=== PATIENT | female | born 1970 | race Caucasian/White ===

== ENCOUNTER 2017-01-25 02:22 | Observation (INO) | payer OTHER ==
[2017-01-25] MEDS ORDERED: EPINEPHrine 1 MG/ML 1 ML AMP IM STA (02:33)
[2017-01-25] MEDS ORDERED: FAMOTIDINE 20 MG/2 ML VIAL IV STA (02:33)
[2017-01-25] MEDS ORDERED: methylPREDNISolone SOD SUCCI 125 MG/2 ML VIAL IV STA (02:33)
[2017-01-25] MEDS ORDERED: diphenhydrAMINE 50 MG/ML 1 ML VIAL IVP STA (02:33)
[2017-01-25] MEDS ORDERED: ALBUTEROL NEBULIZED 2.5 MG/3 ML INHALATION STA (02:34)
--- NOTE | 2017-01-25 02:50 | ED ---
Allergic Reaction HPI - General Chief complaint: Allergic Reaction Stated complaint: Allergic Reaction Time Seen by Provider: 01/25/17 02:25 Source: EMS, RN notes reviewed, old records reviewed Mode of arrival: EMS Limitations: no limitations - History of Present Illness Initial Comments: Patient is a 46-year-old female chief complaint of an ALLERGIC reaction for the second time today. Patient reports that earlier today she was at [facility] had an almond milk drink. Patient reports that she is ALLERGIC to dairy. She states that after having the drink a few hours later she started to have some swelling of her lip. She did call EMS and was given Benadryl. She reports that after that she was feeling fine, they gave her an epipen incase it became worse. Approximately 30 minutes later after EMS left she started to have symptoms severe swelling of her throat and felt like she couldn't breathe. She called EMS again after administering 1 mg epinephrine injection. Patient received Benadryl IV as well as 10 mg of prednisone prior to return to emergency department. Patient reports that her hives have diminished but she still is feeling a fullness in her throat and her uvula is swollen. She reports that she is concerned her throat close off. Patient denies any other exposures after drinking that drink. - Related Data Allergies Allergy/AdvReac Type Severity Reaction Status Date / Time No Known Allergies Allergy Verified 01/25/17 02:35 Review of Systems ROS Statement: Those systems with pertinent positive or pertinent negative responses have been documented in the HPI. ROS Other: All systems not noted in ROS Statement are negative. Past Medical History Past Medical History: No Reported History History of Any Multi-Drug Resistant Organisms: None Reported Past Surgical History: Section, Cholecystectomy, Hysterectomy Past Psychological History: No Psychological Hx Reported Smoking Status: Never smoker Past Alcohol Use History: Occasional Past Drug Use History: None Reported General Exam - General Exam Comments Initial Comments: Pleasant 46-year-old female. No distress. Limitations: no limitations General appearance: alert, in no apparent distress Head exam: Present: atraumatic, normocephalic, normal inspection Eye exam: Present: normal appearance, PERRL, EOMI. Absent: scleral icterus, conjunctival injection, periorbital swelling ENT exam: Present: normal exam, mucous membranes moist. Absent: normal oropharynx (Patient has an extremely enlarged uvula, tongue swelling. ) Neck exam: Present: normal inspection. Absent: tenderness, meningismus, lymphadenopathy Respiratory exam: Present: normal lung sounds bilaterally. Absent: respiratory distress, wheezes, rales, rhonchi, stridor Cardiovascular Exam: Present: regular rate, normal rhythm, normal heart sounds. Absent: systolic murmur, diastolic murmur, rubs, gallop, clicks GI/Abdominal exam: Present: soft, normal bowel sounds. Absent: distended, tenderness, guarding, rebound, rigid Extremities exam: Present: normal inspection, full ROM, normal capillary refill. Absent: tenderness, pedal edema, joint swelling, calf tenderness Back exam: Present: normal inspection Neurological exam: Present: alert, oriented X3, CN II-XII intact Psychiatric exam: Present: normal affect, normal mood Skin exam: Present: warm, dry, intact, normal color. Absent: rash Course Vital Signs 01/25/17 01/25/17 01/25/17 02:26 02:41 02:49 Temperature 98.8 F Pulse Rate 138 H 132 H 137 H Respiratory 20 Rate Blood Pressure 153/94 O2 Sat by Pulse 100 Oximetry Medical Decision Making - Medical Decision Making Patient is a 46-year-old female with chief complaint of ALLERGIC reaction after drinking a and milk drink earlier today. She reports that she is ALLERGIC to dairy so she is always had home and milk. She states that proximally 2 hours later she started noticed some swelling in her lips. She is given Benadryl and EMS was called at that time they gave her an EpiPen to continue to use if it got worse. Patient reports approximately 30 minutes later she's noticed that the swelling in her tongue in the back of her throat became severe. She did refuse her IM EpiPen. Patient states that EMS arrived and started an IV gave her Benadryl. While in the emergency department, patient has a muffled voice due to her enlarged uvula. Patient does have swelling over the tongue and concern for angioedema. Patient given Benadryl Pepcid Solu-Medrol and 0.1 milligram of epinephrine. Patient continues to report some soreness and fullness in the back of her throat. Patient will be admitted at this time for and she'll edema for observation with Dr. ulrich. Discussed case with Dr. Suárez. Disposition Clinical Impression: Allergic reaction, Angioedema Disposition: ADMITTED IP TO THIS HOSP Condition: Stable Time of Disposition: :07
[2017-01-25] MEDS ORDERED: NALOXONE 0.4 MG/ML 1 ML VIAL IV PRN (03:00)
[2017-01-25] MEDS ORDERED: ONDANSETRON 4 MG/2 ML VIAL IVP PRN (03:00)
[2017-01-25] MEDS ORDERED: BENZOCAINE/MENTHOL LOZENG 1 EACH LOZENGE MUCOUS MEM PRN (03:00)
[2017-01-25] MEDS ORDERED: EPINEPHrine 1 MG/ML 1 ML AMP IM PRN (03:10)
[2017-01-25] MEDS ORDERED: IPRATROPIUM-ALBUTEROL 3 ML NEB INHALATION PRN (03:10)
[2017-01-25] MEDS: SODIUM CHLORIDE 0.9% 1,000 ML IV SCH ×2 (03:42→12:04)
[2017-01-25 05:03] VITALS: BMI 32.5
[2017-01-25] MEDS: KETOROLAC 30 MG/ML 1 ML VIAL IVP PRN ×2 (05:13→12:57)
[2017-01-25 05:25] VITALS: RESP 16
[2017-01-25] MEDS: methylPREDNISolone SOD SUCCI 125 MG/2 ML VIAL IV SCH ×3 (06:15→18:25)
[2017-01-25] MEDS ORDERED: FAMOTIDINE 20 MG/2 ML VIAL IV SCH (09:00)
[2017-01-25 16:03] VITALS: BP 108/52; PULSE 110; TEMP 98.1
[2017-01-25] MEDS ORDERED: ENOXAPARIN 40 MG/0.4 ML SYRINGE SQ SCH (18:00)
--- NOTE | 2017-01-25 21:09 | HP ---
DATE OF ADMISSION: 01/25/2017 PRESENTING COMPLAINT: Swelling of lips. HISTORY OF PRESENTING COMPLAINT: This is a pleasant 46-year-old patient who follows with Dr. Becerril. The patient has a history of allergies for which she takes Zyrtec, otherwise a remarkably healthy person. She was watching a movie. When she came out suddenly her hand started swelling and scalp started itching and she noticed that her eyes and face started swelling up and lips swelled up and tongue swelled up, she also noticed some choking. She was given an EpiPen by the EMS. The symptoms did not improve too well initially. Hence she decided to come to the ER. Patient was given EpiPen 0.1 mg IM in the ER followed by Pepcid, Benadryl, IV Solu-Medrol and breathing treatment. Subsequently patient has been feeling much better. Never had an episode like this before. Now able to tolerate a diet. No ( ). No wheezing. REVIEW OF SYSTEMS: CONSTITUTIONAL: Tired. HEENT: As above. RESPIRATORY: As above. CARDIOVASCULAR: None. GASTROINTESTINAL: None. GENITOURINARY: None. MUSCULOSKELETAL: None. Dermatologic: None. HEMATOLOGIC: None. LYMPHATICS: None. PSYCHIATRY: None. NEUROLOGICAL: None. Past medical history: DVT in the right leg following hysterectomy. PAST SURGICAL HISTORY: , cholecystectomy, hysterectomy, right knee surgery. Also past medical history of chronic allergies. SOCIAL HISTORY: The patient does not smoke. Alcohol occasionally. . FAMILY HISTORY: Reviewed, noncontributory to presentation. HOME MEDICATIONS: 1. Multivitamin. 2. Zyrtec. ALLERGIES TO LACTOSE. On examination: Vital signs on presentation: Temperature 98, pulse 130, respiratory rate 20, blood pressure 153/94, pulse ox 100% on room air. GENERAL APPEARANCE: Well built. BMI of 32.6, sitting up, comfortable. EYES: Pupils equal. Conjunctivae normal. HEENT: Slightly swollen. NECK: No stridor. Mass not palpable. JVD not raised. RESPIRATORY: Effort normal. LUNGS: Minimal wheezing. CARDIOVASCULAR: First and second sounds normal. No edema. ABDOMEN: Soft, nontender. Liver and spleen not palpable. LYMPHATIC: No lymph nodes palpable in neck or axillae. PSYCHIATRY: Alert and oriented x3. Mood and affect normal. NEUROLOGICAL: Pupils equal. Cranial nerves grossly intact. Power and sensation grossly intact. INVESTIGATIONS: None. ASSESSMENT: 1. Acute angioedema in a patient who has got chronic allergies. Nothing out of the ordinary ( ) one episode. Had responded well to the above treatment including EpiPen, Solu-Medrol, H1 H2-vania. 2. Obesity; body mass index 32.6. PLAN: Patient was given Pepcid, Solu-Medrol. Doing much better. Care was discussed with the patient.
--- NOTE | 2017-01-27 16:46 | DS ---
DATE OF ADMISSION: 01/25/2017 DATE OF DISCHARGE: 01/25/2017 FINAL DIAGNOSES: 1. Acute angioedema in a patient with chronic allergies, nonspecific, not to ( ). 2. Obesity; body mass index of 32.6. HOSPITAL COURSE: This patient presented with an episode of severe acute angioedema with swelling of lips, difficulty in swallowing; responded well to steroids, H1 and H2 vania. Care was discussed in detail with the patient; told about what medications to take if this was to happen again. DISCHARGE MEDICATIONS: 1. EpiPen p.r.n. 2. Pepcid 20 mg as directed. 3. Multivitamin. 4. Benadryl as directed. 5. Prednisone taper. Patient to follow with Dr. Becerril in 3 days. On examination, lungs are clear. Cardiovascular examination reveals first and second sounds normal. Swelling has gone down.
== END 2017-01-25 18:21 | disposition home or self-care (01) ==
LOC: EC 02:22 → 3OBS 03:38
PROVIDERS: ADMIT Hospitalist; ATTEND Hospitalist
DX: T78.3XXA Angioneurotic edema, initial encounter (principal); Z90.49 Acquired absence of other specified parts of digestive tract; Z90.710 Acquired absence of both cervix and uterus
CPT/HCPCS: 99284 ×2; 96372 ×2; 96374 ×2; 96375 ×3; 96361 ×2; 94640; G0378; J0171; J1200; J2930; J1885; 96376

== ENCOUNTER → 2019-02-08 | Outpatient (CLI) | payer SELFPAY ==
--- NOTE | 2019-02-09 07:48 | CT ---
EXAMINATION TYPE: CT abdomen pelvis wo con DATE OF EXAM: 02/08/2019 COMPARISON: None HISTORY: RLQ pain and hernia CT DLP: 954 mGycm Automated exposure control for dose reduction was used. TECHNIQUE: Helical acquisition of images was performed from the lung bases through the pelvis. FINDINGS: Lack of intravenous and oral contrast limits evaluation of the solid and hollow viscera. LUNG BASES: No significant abnormality is appreciated. LIVER/GB: Gallbladder surgically absent. Unenhanced hepatic parenchyma is homogeneous. PANCREAS: No ductal dilatation. SPLEEN: No splenomegaly. ADRENALS: No nodularity or thickening. KIDNEYS: No hydronephrosis or nephrolithiasis. FREE AIR: No free air is visualized ADENOPATHY: No greater than 1 cm short axis lymph node in the abdomen or pelvis. REPRODUCTIVE ORGANS: Uterus appears surgically absent. Possible right ovarian follicles versus cysts are seen overlying the psoas muscle. URINARY BLADDER: No significant abnormality is seen. OSSEOUS STRUCTURES: Limbus vertebrae versus small osteophyte is seen of L3. Osseous structures are i ntact. BOWEL: Presumably colonic spasm is seen of the splenic flexure as no appreciable mass isn't seen. OTHER: There is a fat-containing periumbilical hernia with a neck measuring only 1.1 cm. Patulous ing uinal canals are seen. No other abdominal hernia is appreciated. IMPRESSION: 1. PROBABLE RIGHT OVARIAN CYSTIC CHANGE OR FOLLICLE. CORRELATE WITH SURGICAL PRESENCE OF THE OVARY IS UTERUS IS SURGICALLY ABSENT ALTHOUGH THIS MAY BE DIFFICULT TO VISUALIZE PELVIC ULTRASOUND COULD ATTE MPT TO ASSESS FOR ANY INTERNAL COMPLEXITY. IF IS NONVISUALIZED AND THERE IS PERSISTENT RIGHT LOWER QU ADRANT PAIN MRI COULD BE PERFORMED. THIS ABUTS THE APPENDICEAL TIP. IF RIGHT OVARY IS SURGICALLY ABSE NT LESS LIKELY CONSIDERATIONS WOULD BE FOR ENTERIC DUPLICATION CYST OR ADENOPATHY. 2. SMALL PERIUMBILICAL FAT FILLED HERNIA WITH A NECK OF 1.1 CM. NO ABUTTING BOWEL.
== END | disposition home or self-care (01) ==
LOC: RADCTMAIN 15:17
PROVIDERS: ATTEND Surgery Plastic and Reconstructive Surgery
DX: K43.9 Ventral hernia without obstruction or gangrene (principal); K42.9 Umbilical hernia without obstruction or gangrene
CPT/HCPCS: 74176